=== PATIENT | male | born 1985 | race Caucasian/White ===

== ENCOUNTER → 2017-10-01 | Outpatient (CLI) | payer SELFPAY ==
--- NOTE | 2017-10-02 17:39 | CT ---
CT Calcium Score Clinical information: 32-year-old male for coronary artery disease risk assessment. Comparison: None. ECG Gating: Prospective Scan range: Pulmonary artery bifurcation to diaphragm. Findings: Examination quality: Good. Limitation: None. Total calcium score: 7 Total volume score: 18 mm3 Percentile: 75-90 % Artery scores Left main coronary artery: 0 Left anterior descending artery: 2 Left circumflex artery: 2 Right coronary artery: 3 Other findings: Cardiac chambers: Unremarkable. Cardiac valves: Unremarkable. Thoracic aorta: Unremarkable. Lungs: Unremarkable. Upper abdomen: Unremarkable. Impression: Total calcium score of 7 consistent with minimal identifiable plaque with a very unlikely, less than 10% chance of cardiovascular event within the next 5 years. Reported By:
== END ==
LOC: RAD 09:04
PROVIDERS: ATTEND Nurse Practitioner Family
DX: Z13.6 Encounter for screening for cardiovascular disorders (principal)